=== PATIENT | female | born 1980 | race Caucasian/White ===

== ENCOUNTER → 2016-08-20 | Day surgery (SDC) | payer BC ==
[~2016-08-20] MED LIST: CONCERTA54 M1; DESYREL100 MG; LEXAPRO20 MG; MICROGESTIN 241 EACH; WELLBUTRIN100 MG PO; ZYRTEC10 M1 PO
--- NOTE | ~2016-08-20 | OR ---
Unit #: [id number] #: [id number] Patient: ANUSHA RIOS [id number] [facility] [address] [place], [place] [address] [id number] O MR#: [id number] NAME: ANUSHA RIOS ROOM: Date of Procedure: 08/20/2016 Admission Date: 08/20/2016 Surgeon: Didier Roth M.D. : 1980 Attending Physician: Didier Roth M.D. Primary Care Physician: Generic Doctor Not In System OPERATIVE REPORT PREOPERATIVE DIAGNOSIS Chronic morbid obesity, body mass index 53. POSTOPERATIVE DIAGNOSIS Chronic morbid obesity, body mass index 53. PROCEDURES PERFORMED 1. Laparoscopic adjustable gastric band. 2. Laparoscopic paraesophageal hiatal hernia repair. ASSISTANT Gio Jain M.D. ANESTHESIA General endotracheal anesthesia. ESTIMATED BLOOD LOSS Minimal. IV FLUIDS 800 crystalloid. COMPLICATIONS None. INDICATIONS FOR PROCEDURE The patient is a 36-year-old with chronic morbid obesity. He/She has gone through the [facility] bariatric program and is interested in laparoscopic adjustable gastric band placement. We have discussed the procedure in detail and she appears to be well informed and highly motivated. DESCRIPTION OF PROCEDURE The patient was taken in the operating room and placed in a supine position. General endotracheal anesthesia was induced. The abdomen was then prepped and draped. A 3-cm incision was then made left of the midline. A 10-mm Visiport was then placed intraabdominal under direct vision. The abdomen was insufflated to 15 mmHg with CO2. The patient was then placed in a steep reversed Trendelenburg. General inspection of the abdomen revealed no gross abnormalities with visible viscera. We then made a small incision in the subxiphoid region. A [facility] liver Unit #: [id number] #: [id number] Patient: ANUSHA RIOS retractor was then placed intraabdominal and used to retract the left lobe of the liver upward to expose the gastroesophageal junction. I then placed a 5-mm and 10-mm port in the left subcostal region under direct vision. I also placed a 5-mm port in the right upper quadrant position. The stomach was retracted medial and then downward. Upon retracting the stomach downward, we identified a hiatal hernia. We thus mobilized the phrenicoesophageal ligament to expose the right and left michelle. Upon doing so we were able to clearly define the hiatal hernia and reduce the stomach back into the abdominal cavity. The hernia was then repaired with interrupted 0-Ethibond sutures secured in a [id number] fashion. This repaired the hernia nicely without undue constriction of the esophagus. We then retracted the stomach medial. Using electrocautery, I scored an area over the origin of the left michelle at the angle of His. The stomach was then retracted lateral. I took down the hepatic gastric ligament with Bovie electrocautery. This exposed the junction of the right and left michelle. Using blunt dissection I created a retrogastric tunnel from this point to the Angle of His. The band was then placed intraabdominal through the 10-mm port site. This was then brought through the retrogastric tunnel in pars flaccida technique. The band was then closed over the anterior stomach to form a 20 mL to 25 mL anterior gastric pouch. The fundus was then secured to the anterior pouch to prevent movement of the and around the stomach using two interrupted 0-Ethibond sutures. A third Ethibond suture was then used as a gathering stitch to secure the anterior stomach at the lesser curve to the remaining fundus. The tubing was then brought out through a 10-mm port site. All ports and the [facility] liver retractor were then removed under direct vision with no evidence of abdominal hemorrhage. A subcutaneous pocket was then created at the 10-mm port site. The tubing was then connected to the injectable port. The port was then placed into the subcutaneous pocket and secured to the anterior fascia with 0-Ethibond sutures. The remaining portion of the tubing was then threaded into the abdominal cavity. All wounds were then anesthetized with 0.25% Marcaine. The skin incisions were closed with 4-0 Vicryl. The patient tolerated the procedure well and was sent to the recovery room in good condition. Dictated by... Jus Guerrero/amos TD: 08/21/2016 02:53 JOB #: [id number] OPERATIVE REPORT X Didier Roth MD X PROCEDURE OPERATIVE NOTE
--- NOTE | ~2016-08-20 | CR7 ---
[facility] A Service of [facility] RADIOLOGY TEXT RESULTS PATIENT: ANUSHA RIOS LOCATION: [facility] : [birth year] UNIT #: [id number] AGE: [address]: Didier Roth MD SEX: F ORDER DR: [id number] [facility] [address] [place], [place] [address] [id number] O MR#: [id number] Acc #: [id number] NAME: ANUSHA RIOS : 1980 SEX: F STUDY DATE/TIME: 08/20/2016 9:02 UNIT: [facility] ROOM: STUDY DESCRIPTION: CR Abdomen Single AP View Attending Physician: Didier Roth M.D. Ordering Physician: Didier Roth M.D. Primary Care Physician: Generic Doctor Not In System MEDICAL IMAGING REPORT This report is preliminary unless electronic signature is present EXAM Portable film of the abdomen HISTORY SUPPLIED Postop Lap-Band surgery FINDINGS An AP view is obtained. The Lap-Band appears in appropriate position at the EG junction. CONCLUSION Satisfactory postop appearance following Lap-Band surgery. Dictated by... Didier Madden M.D. THIS IS AN ELECTRONICALLY VERIFIED REPORT Didier Madden M.D. at 08/20/2016 5:03 PM EMILIANO/lxe TD: 08/20/2016 14:09 JOB #: [id number] MEDICAL IMAGING REPORT COPY
[2016-08-20 06:33] LABS: HEMATOCRIT 40.9 % (35.0-45.0); HEMOGLOBIN 13.6 gm/dL (12.0-16.0); MEAN CELL VOLUME 81.8 FL (83-96); MEAN CORPUSCULAR HEMOGLOBIN 27.2 PG (28-34); MEAN CORPUSCULAR HGB CONC 33.2 g/dL (30-36); MEAN PLATELET VOLUME 7.7 FL (6.5-11.5); RED BLOOD COUNT 4.99 X10e (3.90-5.30); RED CELL DISTRIBUTION WIDTH 13.3 % (11.0-15.5); WHITE BLOOD COUNT 9.3 X10e3 (4.0-10.5)
== END | disposition home or self-care (01) ==
LOC: CSUR 05:57
PROVIDERS: Surgery
DX: E66.01 Morbid (severe) obesity due to excess calories (principal); K44.9 Diaphragmatic hernia without obstruction or gangrene; J30.9 Allergic rhinitis, unspecified; M76.61 Achilles tendinitis, right leg; M19.90 Unspecified osteoarthritis, unspecified site; M17.11 Unilateral primary osteoarthritis, right knee; M67.90 Unspecified disorder of synovium and tendon, unspecified site; Z68.43 Body mass index [BMI] 50.0-59.9, adult; Z90.49 Acquired absence of other specified parts of digestive tract; Z79.899 Other long term (current) drug therapy; Z82.49 Family history of ischemic heart disease and other diseases of the circulatory system; Z80.3 Family history of malignant neoplasm of breast; Z80.0 Family history of malignant neoplasm of digestive organs; Z80.41 Family history of malignant neoplasm of ovary; F90.9 Attention-deficit hyperactivity disorder, unspecified type
CPT/HCPCS: 74000; 84703; 85027; C1781; J0330; J0690; J1650; J1885; J2250; J2405; J2710; J3010